=== PATIENT | female | born 1965 | race Caucasian/White ===

== ENCOUNTER 2021-05-18 17:25 | Emergency (ER) | payer MEDICAID, SELFPAY ==
--- NOTE | ~2021-05-18 | XR_ITS ---
EXAMINATION: XR HAND, RIGHT CLINICAL INFORMATION: Snuffbox tenderness, rule out scaphoid fracture COMPARISON: None TECHNIQUE: PA, lateral, and oblique views of the right hand. FINDINGS: The bones and soft tissues are normal. No fracture. Alignment is anatomic. Joint spaces are maintained. No erosions or soft tissue calcifications. XR/XR hand wrist RT IMPRESSION: Normal right hand.
[2021-05-18 17:45] VITALS: BP 138/61; PULSE 68; RESP 16; O2SAT 96; BMI 29.2
--- NOTE | 2021-05-18 18:20 | ED.EXTPRO ---
HPI - Extremity Problem General Chief complaint: Extremity Problem Stated complaint: hand pain Time Seen by Provider: 05/18/21 18:05 Source: patient Mode of arrival: ambulatory Limitations: no limitations History of Present Illness HPI Narrative: Patient tells me 2 months ago she fell forward into a dresser and caught herself with her right hand outstretched. She has had intermittent chronic pain since then and the right wrist. Went to urgent care this past and given a splint but has had continued pain and feels like the splint is not helping. No numbness, tingling, warmth or redness. No fevers or chills Related Data Previous Rx's Medication Instructions Recorded naproxen 500 mg tablet 500 mg PO BID PRN #15 tab 05/18/21 Allergies Allergy/AdvReac Type Severity Reaction Status Date / Time No Known Allergies Allergy Verified 05/18/21 17:45 Review of Systems Review of Systems: Yes all other systems are reviewed and are negative Constitutional: Constitutional: Reports no additional constitutional complaints, Denies body ache(s), Denies chills, Denies fever(s), Denies headache(s) and Denies weakness Eyes: Eyes: Reports no additional eye complaints and Denies change in vision ENT: Reports system reviewed and no additional complaints, except as documented, Denies dizziness, Denies headache(s), Denies nasal congestion, Denies nasal discharge and Denies neck pain Cardiovascular: Cardiovascular: Reports no additional cardiovascular complaints, Denies chest pain, Denies leg edema and Denies dyspnea Respiratory: Respiratory: Reports no additional respiratory complaints, Denies cough and Denies dyspnea Gastrointestinal: Gastrointestinal: Reports no additional gastrointestinal complaints, Denies abdominal pain, Denies diarrhea, Denies nausea and Denies vomiting Genitourinary: Genitourinary: Reports no additional female genitourinary complaints and Denies urinary incontinence Musculoskeletal: Musculoskeletal: Reports no additional musculoskeletal complaints, Denies back pain, Reports arthralgias, Denies joint swelling, Denies neck pain, Denies numbness and Denies tingling Integumentary/Breasts: Skin/Breast: Reports system reviewed and no additional complaints, except as docu and Denies rash Neurologic: Reports system reviewed and no additional complaints, except as documented, Denies dizziness, Denies headache(s), Denies numbness, Denies tingling and Denies weakness PMF Past Medical History Attestation statement: The following information was validated with the patient. Source: old records reviewed and nursing notes reviewed Social History Social History Advance Directives: No Advance Directives Information Provided: Yes Physical Exam Vital Signs: Vital Signs: Last Vital Signs Pulse 68 05/18/21 17:45 Resp 16 05/18/21 17:45 BP 138/61 05/18/21 17:45 Pulse Ox 96 05/18/21 17:45 Body Mass Index 29.2 Extrem: Other: Patient has tenderness over the right wrist at the snuffbox. She has a positive Leslee's test No obvious swelling, deformity, warmth or redness. Palpable distal pulses noted. Course Course Course Narrative: Fall on outstretched hand 2 months ago now with persistent right wrist pain. On exam has snuffbox tenderness so consider scaphoid fracture. Will check x-ray. Also positive Leslee's test so consider dequervains tenosynovitis. 1900-x-rays show no bony abnormality. Likely tenosynovitis. Patient placed in a cock-up splint. Reviewed worrisome signs and symptoms of when to return to the emergency department. Comfortable discharge home. MDM - Extremity (Nontraumatic) Medical Records Attestation: I reviewed the patient's medical records. Lab Data Attestation: I reviewed the patient's lab results. Imaging Data hand/wrist right xray: Attestation: I personally reviewed and interpreted this imaging study as follows: Radiologist's impression: EXAMINATION: XR HAND, RIGHT CLINICAL INFORMATION: Snuffbox tenderness, rule out scaphoid fracture? COMPARISON: None? TECHNIQUE: PA, lateral, and oblique views of the right hand. FINDINGS: The bones and soft tissues are normal. No fracture. Alignment is anatomic. Joint spaces are maintained. No erosions or soft tissue calcifications.? XR/XR hand wrist RT IMPRESSION: Normal right hand. Procedures Procedure Narrative Procedure Narrative: velcro cock up splint Discharge Plan Discharge Clinical Impression: De Quervain's disease (tenosynovitis) Patient Disposition: Home, Self-Care Instructions: De Quervain Disease (ED), Tenosynovitis (ED) Additional Instructions: Ice 20 minutes on/20 minutes off, limit use of the hand as discussed, elevation Follow-up with orthopedics as discussed Splint for comfort as discussed Prescriptions: New naproxen 500 mg tablet 500 mg PO BID PRN (Reason: pain) Qty: 15 RF: 0 Referrals: Leonard Edwards MD [Physician] - 2 days
== END 2021-05-18 19:05 | disposition home or self-care (01) ==
PROVIDERS: Emergency Provider Emergency Medicine
DX: M65.4 Radial styloid tenosynovitis [de Quervain] (principal); M79.641 Pain in right hand; Z79.899 Other long term (current) drug therapy
CPT/HCPCS: 73110; 73130; 99283

== ENCOUNTER 2024-09-30 10:07 | Emergency (ER) | payer OTHER, SELFPAY ==
--- NOTE | ~2024-09-30 | XR_ITS ---
EXAMINATION: XR KNEE, LEFT CLINICAL INFORMATION: pain COMPARISON: None available. TECHNIQUE: Four views of the left knee. FINDINGS: Joint space narrowing involving the lateral and to a lesser extent in the medial compartment. There is overlapping of the proximal tibia and fibula on the frontal and lateral projection. No suprapatellar bursa joint effusion. No acute cortical disruption or gross malalignment. There is a 5 mm well-corticated calcification in the popliteal region. No subcutaneous emphysema. No metallic or radiopaque foreign body. XR/XR knee LT 3V IMPRESSION: Bicompartmental osteoarthrosis without acute fracture or gross dislocation. Electronically signed by: Adair Scott MD 09/30/2024 12:12 PM CINDY
[2024-09-30 11:18] VITALS: BP 124/66; PULSE 65; RESP 20; TEMP 37.1; O2SAT 100; BMI 30.5
--- NOTE | 2024-09-30 11:21 | ED.GENADULT ---
HPI - General Adult General Chief complaint: Extremity Injury, Lower Stated complaint: l leg inj 2 wks ago Time Seen by Provider: 09/30/24 12:34 Source: patient, family and old records reviewed Mode of arrival: ambulatory Limitations: no limitations History of Present Illness ED Provider: COURTNEY MURO narrative: 59 yo female reports an issue going over the seat of a car possibly 2 weeks ago she is vague - she notes she then had a hard time walking. She went to [facility] no xrays and notes it is more painful after the past two days. No fevers/rash reported. No new injury. She wants to see an orthopedist near her home in [place]. She can walks but the knee hurts MD complaint: L knee pain Onset (ago): week(s) (?2) Location: left and lower extremity Radiation: non-radiation Severity: moderate Quality: aching Pain Consistency: constant Relieving factors: none Exacerbating factors: movement Associated symptoms: denies other symptoms Treatments prior to arrival: none Related Data Previous Rx's ?Medication ?Instructions ?Recorded naproxen 500 mg tablet 500 mg PO BID PRN pain #15 tabs 05/18/21 Allergies Allergy/AdvReac Type Severity Reaction Status Date / Time No Known Allergies Allergy Verified 09/30/24 11:22 Review of Systems Review of Systems: Constitutional : No Fever, No Chills ENT/Mouth : No Ear Pain, No Hoarseness, No sore throat Eyes: No Eye Pain, No Swelling, No Redness, No Foreign Body Cardiovascular : No Chest Pain, No SOB Respiratory : No Cough, No Dyspnea Gastrointestinal : No Nausea, No Vomiting, No Diarrhea, No abdominal Pain Genitourinary : No Dysuria, No Hematuria Musculoskeletal : positive joint pain, No Myalgias, pos Joint Swelling Skin : No Skin lacerations, No rash Neuro : No Weakness, No Numbness, No Loss of Consciousness, No Dizziness, No Headache All other systems reviewed and are negative PMFSH Past Medical History Attestation statement: The following information was validated with the patient. Medical History Arthritis Social History Social History (Updated 09/30/24 @ 12:45 by Ivon Alvarez DO) Patient Tobacco Use Status: Tobacco use Unknown Advance Directives: No Advance Directives Information Provided: No Do you have a plan to hurt others: No Plan Physical Exam ED Vital Signs: Vital Signs - 24 hr 09/30/24 11:18 Temperature 98.8 F Pulse Rate 65 Respiratory Rate 20 Blood Pressure 124/66 Pulse Oximetry 100 Oxygen Delivery Method Room Air BMI result Body Mass Index 30.5 Appearance: Alert. Oriented X3. No acute distress. Eyes: Pupils equal, round and reactive to light. ENT: Pharynx normal. Neck: Normal inspection. Neck supple. CVS: Pulses normal. Respiratory: No respiratory distress. Abdomen: atrauamtic Skin: Skin warm and dry. Normal skin color. Extremities: No lower extremity edema. L knee mild effusion no warmth, no heat, no signs of infection, distal NV intact, slight limp, normal ROM Neuro: Oriented X 3. No motor deficit. No sensory deficit. CN2-12 intact Course Course Course Narrative: RME, this is a rapid medical exam performed by Sami Wynne please refer to primary provider for complete H&P- 59-year-old female presents for evaluation of left knee pain. She reports her left knee buckled about 2 weeks ago when tripping into a car. She states that the left leg gave out and she fell but caught herself with a car so she would not fall to the ground. She reports pain to the left knee ever since. Plan for x-ray Medical Decision Making Medical Decision Making MDM Narrative: 59 yo female with PMH of L prior knee injury but no hx of surgery here with pain to L knee after a trauma - she is NV intact, no signs or reports of infection will obtain xray and advise orthopedics follow up Differential Diagnosis Differential Diagnoses: The differential diagnosis associated with the presentation includes internal injury to the knee, sprain, joint effusion Admission/Observation Consideration of admission/observation: Escalation of care including admission/observation considered can follow up with orthopedic doctor as outpatient Independent Interpretation I performed an independent interpretation of an: Plain X-Ray (no fx) Radiology Impression Discussion of test interpretation with radiology: I have reviewed the radiologist's reading. Prescription Management I considered prescription management with: Pain Medication Discharge Plan Discharge Clinical Impression: Knee effusion Qualifiers: Laterality: left Qualified Code(s): M25.462 - Effusion, left knee Left knee sprain Qualifiers: Encounter type: initial encounter Involved ligament of knee: unspecified ligament Qualified Code(s): S83.92XA - Sprain of unspecified site of left knee, initial encounter Patient Disposition: Home, Self-Care Instructions: Knee Sprain (DC), Swollen Knee Joint (ED) Additional Instructions: return for worsening swelling, pain, numbness weakness or any other concerns please follow up with your orthopedic doctor call to schedule appointment can wear sowmya wrap as needed for comfort [facility] [place] [phone] FINDINGS: Joint space narrowing involving the lateral and to a lesser extent in the medial compartment. There is overlapping of the proximal tibia and fibula on the frontal and lateral projection. No suprapatellar bursa joint effusion. No acute cortical disruption or gross malalignment. There is a 5 mm well-corticated calcification in the popliteal region. No subcutaneous emphysema. No metallic or radiopaque foreign body. XR/XR knee LT 3V IMPRESSION: Bicompartmental osteoarthrosis without acute fracture or gross dislocation. Prescriptions: No Action naproxen 500 mg tablet 500 mg PO BID PRN (Reason: pain) Qty: 15 0RF Print Language: [place]
[2024-09-30 12:42] VITALS: BP 124/66; PULSE 65; RESP 20; TEMP 37.1; O2SAT 100
== END 2024-09-30 12:42 | disposition home or self-care (01) ==
LOC: HO.ED 12:42
PROVIDERS: Emergency Provider Emergency Medicine
DX: S83.92XA Sprain of unspecified site of left knee, initial encounter (principal); W01.0XXA Fall on same level from slipping, tripping and stumbling without subsequent striking against object, initial encounter; Y93.89 Activity, other specified; Y92.9 Unspecified place or not applicable; Y99.9 Unspecified external cause status; M25.462 Effusion, left knee; M25.562 Pain in left knee
CPT/HCPCS: 73562; 99282; 99283

== ENCOUNTER → 2024-09-30 11:21 | Outpatient (BNV) | payer OTHER, SELFPAY | PROVIDERS: Emergency Provider Emergency Medicine; Visit Provider Radiology Diagnostic Radiology | DX: M17.12 Unilateral primary osteoarthritis, left knee (principal) | CPT/HCPCS: 73562 ==